=== PATIENT | female | born 1980 | race African-American/Black ===

== ENCOUNTER 2016-12-15 10:41 | Inpatient (IN) | payer OTHER ==
[2016-12-15 11:11] VITALS: BMI 24.2
--- NOTE | 2016-12-15 13:30 | HP ---
CIWA Score - CIWA Score Nausea/Vomitin-No Nausea/No Vomiting Muscle Tremors: 4-Moderate,w/Arms Extend Anxiety: 3 Agitation: 2 Paroxysmal Sweats: 3 Orientation: 2-Disoriented Date<2 days Tacttile Disturbances: 3-Moderate Itch/Numb/Burn Auditory Disturbances: 0-None Visual Disturbances: 0-None Headache: 0-None Present CIWA-Ar Total Score: 17 Admission ROS S - HPI Chief Complaint: "I'm here for Alcohol." Pt. is here to Detox from Alcohol. Allergies/Adverse Reactions: Allergies Allergy/AdvReac Type Severity Reaction Status Date / Time No Known Allergies Allergy Verified 12/15/16 12:23 History of Present Illness: Pt. is a 36 YO female here to Detox from Alcohol. Pt. has had 1 previous Detox and Rehab admission at [facility] in 2003. Exam Limitations: No Limitations - Ebola screening Have you traveled outside of the country in the last 21 days: No Have you had contact with anyone from an Ebola affected area: No Have you been sick,other than usual withdrawal symptoms: No Do you have a fever: No - Review of Systems Constitutional: Chills, Diaphoresis, Fever, Loss of Appetite, Malaise, Night Sweats, Changes in sleep, Unintentional Wgt. Loss (Lost approx. 18 lbs. over last 3 months.) EENT: reports: No Symptoms Reported Respiratory: reports: Cough Cardiac: reports: Other (Blackout: Last episode: 12/13/16; was evluated at ER.) GI: reports: Diarrhea, Poor Appetite : reports: No Symptoms Reported Musculoskeletal: reports: No Symptoms Reported Integumentary: reports: No Symptoms Reported Neuro: reports: Tremors Endocrine: reports: No Symptoms Reported Hematology: reports: Anemia (No treatment.) Psychiatric: reports: Judgement Intact, Mood/Affect Appropiate, Orientated x3, Anxious, Depressed Other Systems: Reviewed and Negative Patient History - Patient Medical History Hx Anemia: Yes (No treatment.) Hx Asthma: No Hx Chronic Obstructive Pulmonary Disease (COPD): No Hx Cancer: No Hx Cardiac Disorders: Yes (open heart sx at age 11) Hx Congestive Heart Failure: No Hx Hypertension: No Hx Hypercholesterolemia: No Hx Pacemaker: No HX Cerebrovascular Accident: No Hx Seizures: No Hx Dementia: No Hx Diabetes: No Hx Gastrointestinal Disorders: No Hx Liver Disease: No Hx Genitourinary Disorders: No Hx Sexually Transmitted Disorders: No Hx Renal Disease (ESRD): No Hx Thyroid Disease: No Hx Human Immunodeficiency Virus (HIV): Yes (No meds.) Hx Hepatitis C: No (Never Tested.) Hx Depression: Yes (No previous treatment.) Hx Suicide Attempt: No (PATIENT DENIES CURRENT SI / HI.) Hx Bipolar Disorder: No Hx Schizophrenia: No Other Medical History: DENIES. - Patient Surgical History Past Surgical History: Yes Hx Neurologic Surgery: No Hx Cataract Extraction: No Hx Cardiac Surgery: Yes (open heart sx at age 11) Hx Lung Surgery: No Hx Breast Surgery: No Hx Breast Biopsy: No Hx Abdominal Surgery: No Hx Appendectomy: No Hx Cholecystectomy: No Hx Genitourinary Surgery: No Hx Section: No Hx Orthopedic Surgery: No Anesthesia Reaction: No - PPD History Previous Implant?: Yes Documented Results: Negative w/o proof Implanted On Prior [facility] Admission?: No PPD to be Administered?: Yes - Reproductive History Patient is a Female of Child Bearing Age (11 -55 yrs old): Yes Last Menstrual Period: 12/12/16 Patient : No - Smoking Cessation Smoking history: Current every day smoker Have you smoked in the past 12 months: Yes Aproximately how many cigarettes per day: 10 Cigars Per Day: 0 Hx Chewing Tobacco Use: No Initiated information on smoking cessation: Yes 'Breaking Loose' booklet given: 12/15/16 (GIVEN ON UNIT.) - Substance & Tx. History Hx Alcohol Use: Yes Hx Substance Use: Yes Substance Use Type: Alcohol Hx Substance Use Treatment: Yes (1 Previous Detox and Rehab admission at [facility] in 2003.) - Substances Abused Alcohol-vodka/beer Route: Oral Frequency: Daily Amount used: 4-5 pts./2-6 pks. Age of first use: 14 Date of Last Use: 12/15/16 Family Disease History - Family Disease History Family History: Denies Admission Physical Exam [facility] - Vital Signs Vital Signs: Vital Signs - 24 hr 12/15/16 11:08 Temperature 97.3 F L Pulse Rate 85 Respiratory 16 Rate Blood Pressure 114/71 - Physical General Appearance: Yes: No Apparent Distress, Nourished, Appropriately Dressed , Tremorous, Anxious HEENTM: Yes: Hearing grossly Normal, Normocephalic, Normal Voice, ADRIAN, Pharynx Normal Respiratory: Yes: Chest Non-Tender, Lungs Clear, No Respiratory Distress, No Accessory Muscle Use Neck: Yes: No masses,lesions,Nodules, Supple, Trachea in good position Breast: Yes: Breast Exam Deferred Cardiology: Yes: Regular Rhythm, Regular Rate, S1, S2 Abdominal: Yes: Normal Bowel Sounds, Non Tender, Flat, Soft Genitourinary: Yes: Within Normal Limits Back: Yes: Normal Inspection Musculoskeletal: Yes: full range of Motion, Gait Steady Extremities: Yes: Normal Range of Motion, Non-Tender, Tremors Neurological: Yes: Fully Oriented, Alert, Normal Mood/Affect, Normal Response Integumentary: Yes: Normal Color, Dry, Warm Lymphatic: Yes: Within Normal Limits - Diagnostic (1) Alcohol dependence with uncomplicated withdrawal Current Visit: Yes Status: Acute (2) Nicotine dependence Current Visit: Yes Status: Chronic Qualifiers: Nicotine product type: cigarettes Substance use status: uncomplicated Qualified Code(s): F17.210 - Nicotine dependence, cigarettes, uncomplicated (3) History of open heart surgery Current Visit: Yes Status: Chronic (4) HIV (human immunodeficiency virus infection) Current Visit: Yes Status: Chronic Cleared for Admission [facility] - Detox or Rehab [facility] Level of Care: Medically Managed Detox Regimen/Protocol: Librium [facility] Breath Alcohol Content Breath Alcohol Content: 0.287 Urine Pregancy Test - Result Urine Test Results: Negative- NO Line Present Urine Drug Screen - Results Drug Screen Negative: No Urine Drug Screen Results: NÉSTOR-Cocaine
[2016-12-15] MEDS ORDERED: chlordiazePOXIDE HCL 25 MG CAPSULE PO PRN (13:56)
[2016-12-15] MEDS ORDERED: MAGNESIUM CITRATE 300 ML BOTTLE PO PRN (13:56)
[2016-12-15] MEDS ORDERED: MENTHOL/PHENOL 1 EACH UD MM PRN (13:56)
[2016-12-15] MEDS ORDERED: hydrOXYzine PAMOATE 50 MG CAPSULE (FP) PO PRN (13:56)
[2016-12-15] MEDS ORDERED: P-EPHED 60MG/TRIPROLIDI 2.5MG TABLET PO PRN (13:56)
[2016-12-15] MEDS ORDERED: LOPERAMIDE HCL 2 MG CAPSULE PO PRN (13:56)
[2016-12-15] MEDS ORDERED: MAGNESIUM HYDROX 2400MG/30ML ORAL SUSPENSION 30 ML CUP PO PRN (13:56)
[2016-12-15] MEDS ORDERED: IBUPROFEN 400 MG TABLET (FP) PO PRN (13:56)
[2016-12-15] MEDS ORDERED: guaiFENesin/D-METHORPHAN HB 10 ML UNIT-DOSE CUPS PO PRN (13:56)
[2016-12-15] MEDS ORDERED: ACETAMINOPHEN 325 MG TABLET (FP) PO PRN (13:56)
[2016-12-15] MEDS ORDERED: MAG HYDROX/AL HYDROX/SIMETH 30 ML UNIT-DOSE CUP PO PRN (13:56)
[2016-12-15] MEDS ORDERED: diphenhydrAMINE HCL 50 MG CAPSULE PO PRN (13:56)
[2016-12-15] MEDS ORDERED: chlordiazePOXIDE HCL 25 MG CAPSULE PO ONE (14:55)
[2016-12-15 16:08] LABS: MCH 32.1 pg (25.7-33.7); MCHC 33.9 g/dl (32.0-36.0); MEAN CELL VOLUME 94.6 fl (80-96); PLATELET COUNT 339 K/MM3 (134-434); RDW 16.1 % (11.6-15.6)
[2016-12-15 16:34] LABS: ALBUMIN 3.6 g/dl (3.4-5.0); ANION GAP 10 (8-16); CALCIUM 8.8 mg/dL (8.5-10.1); CO2 28 mmol/L (21-32); GLUCOSE,RANDOM 107 mg/dL (74-106)
[2016-12-15 16:39] LABS: ALK PHOS 68 U/L (45-117); BILIRUBIN,TOTAL 0.5 mg/dL (0.2-1.0); CREATININE 0.5 mg/dL (0.55-1.02); SGOT/AST 25 U/L (15-37); SGPT/ALT 19 U/L (12-78); TOT PROT 7.8 g/dl (6.4-8.2)
[2016-12-15] MEDS: chlordiazePOXIDE HCL 25 MG CAPSULE PO SCH ×2 (18:09→22:15)
[2016-12-15 19:11] LABS: URINE APPEARANCE CLEAR; URINE BILIRUBIN NEGATIVE (NEGATIVE); URINE BLOOD NEGATIVE (NEGATIVE); URINE COLOR COLORLESS; URINE GLUCOSE (UA) NEGATIVE (NEGATIVE); URINE KETONE NEGATIVE (NEGATIVE); URINE LEUK ESTERASE NEGATIVE (NEGATIVE); URINE NITRITE NEGATIVE (NEGATIVE); URINE PROTEIN NEGATIVE (NEGATIVE); URINE UROBILINOGEN NEGATIVE mg/dL (0.2-1.0)
[2016-12-15] MEDS: THIAMINE HCL 100 MG TABLET (FP) PO SCH (22:15)
[2016-12-16] MEDS: chlordiazePOXIDE HCL 25 MG CAPSULE PO SCH ×4 (05:23→22:47)
[2016-12-16] MEDS: PRENATAL VITAMINS W/ FOLIC ACID TABLET (FP) PO SCH (10:24)
--- NOTE | 2016-12-16 13:24 | PN ---
S CIWA - CIWA Score Nausea/Vomitin-No Nausea/No Vomiting Muscle Tremors: 4-Moderate,w/Arms Extend Anxiety: 4-Mod. Anxious/Guarded Agitation: 3 Paroxysmal Sweats: 3 Orientation: 0-Oriented Tacttile Disturbances: 0-None Auditory Disturbances: 0-None Visual Disturbances: 0-None Headache: 0-None Present CIWA-Ar Total Score: 14 B[facility] Progress Note (SOAP) Subjective: Sweating,interrupted sleep,restless,tremors,anxiety. Objective: 12/16/16 13:23 Vital Signs - 8 hr 12/16/16 12/16/16 06:00 10:00 Temperature 97.7 F 97.7 F Pulse Rate 59 L 74 Respiratory 18 18 Rate Blood Pressure 107/78 128/88 Laboratory Tests 12/15/16 12/15/16 12/15/16 13:00 13:00 13:00 WBC 4.0 RBC 3.45 L Hgb 11.1 Hct 32.6 MCV 94.6 MCH 32.1 MCHC 33.9 RDW 16.1 H Plt Count 339 MPV 8.0 Sickle Cell Screen Negative Sodium 143 Potassium 3.8 Chloride 105 Carbon Dioxide 28 Anion Gap 10 BUN 9 Creatinine 0.5 L Creat Clearance w eGFR > 60 Random Glucose 107 H Calcium 8.8 Total Bilirubin 0.5 AST 25 ALT 19 Alkaline Phosphatase 68 Total Protein 7.8 Albumin 3.6 Urine Color Urine Appearance Urine pH Ur Specific [place] Urine Protein Urine Glucose (UA) Urine Ketones Urine Blood Urine Nitrite Urine Bilirubin Urine Urobilinogen Ur Leukocyte Esterase RPR Titer 12/15/16 12/15/16 13:00 18:53 WBC RBC Hgb Hct MCV MCH MCHC RDW Plt Count MPV Sickle Cell Screen Sodium Potassium Chloride Carbon Dioxide Anion Gap BUN Creatinine Creat Clearance w eGFR Random Glucose Calcium Total Bilirubin AST ALT Alkaline Phosphatase Total Protein Albumin Urine Color Colorless Urine Appearance Clear Urine pH 6.0 Ur Specific [place] <= 1.005 Urine Protein Negative Urine Glucose (UA) Negative Urine Ketones Negative Urine Blood Negative Urine Nitrite Negative Urine Bilirubin Negative Urine Urobilinogen Negative Ur Leukocyte Esterase Negative RPR Titer Nonreactive labs noted Assessment: 12/16/16 13:24 Withdrawal sx. Plan: Continue detox
--- NOTE | 2016-12-16 17:34 | CONSULT ---
[facility] Psychiatric Consult - Data Date of interview: 12/16/16 Admission source: [facility] Identifying data: Patient is approached at bedside for psychiatric evaluation.Refused.Hostile,derogatory and verbally abusive towards this machine sign writer.Examination deferred.Nursing staff made aware.
[2016-12-16] MEDS: THIAMINE HCL 100 MG TABLET (FP) PO SCH (22:47)
[2016-12-17] MEDS: chlordiazePOXIDE HCL 25 MG CAPSULE PO SCH ×2 (06:06→12:43)
--- NOTE | 2016-12-17 11:10 | PN ---
[facility] CIWA - CIWA Score Nausea/Vomitin-No Nausea/No Vomiting Muscle Tremors: 3 Anxiety: 4-Mod. Anxious/Guarded Agitation: 3 Paroxysmal Sweats: 3 Orientation: 0-Oriented Tacttile Disturbances: 0-None Auditory Disturbances: 0-None Visual Disturbances: 0-None Headache: 0-None Present CIWA-Ar Total Score: 13 S Progress Note (SOAP) Subjective: Anxiety,tremors,sweating,interrupted sleep,restless Objective: 12/17/16 11:09 Vital Signs - 8 hr 12/17/16 12/17/16 12/17/16 03:30 06:00 10:00 Temperature 97.3 F L 96.4 F L Pulse Rate 52 L 65 Respiratory 18 16 16 Rate Blood Pressure 108/58 113/83 Laboratory Last Values WBC 4.0 K/mm3 (4.0-10.0) 12/15/16 13:00 RBC 3.45 M/mm3 (3.60-5.2) L 12/15/16 13:00 Hgb 11.1 GM/dL (10.7-15.3) 12/15/16 13:00 Hct 32.6 % (32.4-45.2) 12/15/16 13:00 MCV 94.6 fl (80-96) 12/15/16 13:00 MCH 32.1 pg (25.7-33.7) 12/15/16 13:00 MCHC 33.9 g/dl (32.0-36.0) 12/15/16 13:00 RDW 16.1 % (11.6-15.6) H 12/15/16 13:00 Plt Count 339 K/MM3 (134-434) 12/15/16 13:00 MPV 8.0 fl (7.5-11.1) 12/15/16 13:00 Sickle Cell Screen Negative (NEGATIVE) 12/15/16 13:00 Sodium 143 mmol/L (136-145) 12/15/16 13:00 Potassium 3.8 mmol/L (3.5-5.1) 12/15/16 13:00 Chloride 105 mmol/L (98-107) 12/15/16 13:00 Carbon Dioxide 28 mmol/L (21-32) 12/15/16 13:00 Anion Gap 10 (8-16) 12/15/16 13:00 BUN 9 mg/dL (7-18) 12/15/16 13:00 Creatinine 0.5 mg/dL (0.55-1.02) L 12/15/16 13:00 Creat Clearance w eGFR > 60 (>60) 12/15/16 13:00 Random Glucose 107 mg/dL (74-106) H 12/15/16 13:00 Calcium 8.8 mg/dL (8.5-10.1) 12/15/16 13:00 Total Bilirubin 0.5 mg/dL (0.2-1.0) 12/15/16 13:00 AST 25 U/L (15-37) 12/15/16 13:00 ALT 19 U/L (12-78) 12/15/16 13:00 Alkaline Phosphatase 68 U/L (45-117) 12/15/16 13:00 Total Protein 7.8 g/dl (6.4-8.2) 12/15/16 13:00 Albumin 3.6 g/dl (3.4-5.0) 12/15/16 13:00 Urine Color Colorless 12/15/16 18:53 Urine Appearance Clear 12/15/16 18:53 Urine pH 6.0 (5.0-8.0) 12/15/16 18:53 Ur Specific [place] <= 1.005 (1.005-1.025) 12/15/16 18:53 Urine Protein Negative (NEGATIVE) 12/15/16 18:53 Urine Glucose (UA) Negative (NEGATIVE) 12/15/16 18:53 Urine Ketones Negative (NEGATIVE) 12/15/16 18:53 Urine Blood Negative (NEGATIVE) 12/15/16 18:53 Urine Nitrite Negative (NEGATIVE) 12/15/16 18:53 Urine Bilirubin Negative (NEGATIVE) 12/15/16 18:53 Urine Urobilinogen Negative mg/dL (0.2-1.0) 12/15/16 18:53 Ur Leukocyte Esterase Negative (NEGATIVE) 12/15/16 18:53 RPR Titer Nonreactive (NONREACTIVE) 12/15/16 13:00 Hepatitis C Antibody <0.1 s/co ratio (0.0-0.9) 12/15/16 13:00 labs noted Assessment: 12/17/16 11:10 Withdrawal sx. Plan: Continue detox
[2016-12-17] MEDS: PRENATAL VITAMINS W/ FOLIC ACID TABLET (FP) PO SCH (12:44)
--- NOTE | 2016-12-17 14:03 | EKG ---
Test Reason : Blood Pressure : / mmHG Vent. Rate : 073 BPM Atrial Rate : 073 BPM P-R Int : 160 ms QRS Dur : 100 ms QT Int : 448 ms P-R-T Axes : 083 020 053 degrees QTc Int : 493 ms NORMAL SINUS RHYTHM INCOMPLETE RIGHT BUNDLE BRANCH BLOCK T WAVE ABNORMALITY, CONSIDER ANTERIOR ISCHEMIA PROLONGED QT ABNORMAL ECG NO PREVIOUS ECGS AVAILABLE CLINICAL CORRELATION IS RECOMMENDED Confirmed by TRINI ALVARADO, LENNOX ([id number]) on 12/17/2016 2:03:14 PM Referred By: Jimmy Pate Confirmed By:LENNOX FELIZ MD
[2016-12-17] MEDS: chlordiazePOXIDE 5 MG CAPSULE PO SCH ×2 (17:51→22:42)
[2016-12-17] MEDS: THIAMINE HCL 100 MG TABLET (FP) PO SCH (22:43)
[2016-12-18] MEDS: chlordiazePOXIDE 5 MG CAPSULE PO SCH ×2 (07:46→10:39)
[2016-12-18 10:22] VITALS: BP 106/62; PULSE 63; TEMP 97.7
[2016-12-18] MEDS: PRENATAL VITAMINS W/ FOLIC ACID TABLET (FP) PO SCH (10:39)
--- NOTE | 2016-12-18 11:15 | PN ---
[facility] Progress Note (SOAP) Subjective: i am feeling fine little sweats Objective: 12/18/16 08:30 Vital Signs - 24 hr 12/18/16 10:22 Temperature 97.7 F Pulse Rate 63 Respiratory 20 Rate Blood Pressure 106/62 awake/alert ambulating no acute distress Assessment: 12/18/16 08:31 mild withdrawal sx Plan: continue detox increase fluids d/c in am
[2016-12-18] MEDS ORDERED: chlordiazePOXIDE HCL 10 MG CAPSULE PO SCH (17:00)
--- NOTE | 2016-12-19 08:35 | PN ---
S Progress Note Note: pt did not want to stay and signed out AMA. pt did not want to say why she is leaving.
--- NOTE | 2016-12-19 08:36 | DS ---
[facility] Detox Discharge Summary Admission Date: 12/15/16 Discharge Date: 12/18/16 - History Present History: Alcohol Dependence - Physical Exam Results Vital Signs: Vital Signs Temperature 97.7 F 12/18/16 10:22 Pulse Rate 63 12/18/16 10:22 Respiratory Rate 20 12/18/16 10:22 Blood Pressure 106/62 12/18/16 10:22 O2 Sat by Pulse Oximetry (%) - Treatment Hospital Course: Detoxed Safely, Discharged Condition Good - Medication Discharge Medications: Ambulatory Orders NK [No Known Home Medication] 12/15/16 - Diagnosis (1) Alcohol dependence with uncomplicated withdrawal Status: Chronic (2) HIV (human immunodeficiency virus infection) Status: Chronic (3) History of open heart surgery Status: Chronic (4) Nicotine dependence Status: Chronic Qualifiers: Nicotine product type: cigarettes Substance use status: uncomplicated Qualified Code(s): F17.210 - Nicotine dependence, cigarettes, uncomplicated - AMA Did Patient Leave Against Medical Advice: Yes (AMA 12/18/16)
== END 2016-12-18 12:15 | disposition left against medical advice (07) | DRG 770 ==
LOC: YASAS 10:41 → Y6N 14:02
PROVIDERS: ADMIT Internal Medicine; ATTEND Internal Medicine
PROC: HZ2ZZZZ Detoxification Services for Substance Abuse Treatment (ICD-10-PCS; principal; 2016-12-15)
DX: F10.230 Alcohol dependence with withdrawal, uncomplicated (principal); F17.210 Nicotine dependence, cigarettes, uncomplicated; Z21 Asymptomatic human immunodeficiency virus [HIV] infection status; D64.9 Anemia, unspecified; Z98.890 Other specified postprocedural states
CPT/HCPCS: 36415; 80053; 81003; 85027; 85660; 86593; 86803; 93005; 93010

== ENCOUNTER 2018-05-04 08:06 | Inpatient (IN) | payer OTHER ==
[2018-05-04 09:48] VITALS: BMI 21.4
--- NOTE | 2018-05-04 10:28 | HP ---
CIWA Score Nausea/Vomitin Muscle Tremors: 4-Moderate,w/Arms Extend Anxiety: 4-Mod. Anxious/Guarded Agitation: 1-Slight > Activity Paroxysmal Sweats: No Perspiration Orientation: 0-Oriented Tacttile Disturbances: 0-None Auditory Disturbances: 1-Very Mild Visual Disturbances: 0-None Headache: 2-Mild CIWA-Ar Total Score: 15 - Admission Criteria [facility] Guidelines: Admission for Medically Managed Detox: Requires at least one of the followin. CIWA greater than 12 2. Seizures within the past 24 hours 3. Delirium tremens within the past 24 hours 4. Hallucinations within the past 24 hours 5. Acute intervention needed for co occurring medical disorder 6. Acute intervention needed for co occurring psychiatric disorder 7. Severe withdrawal that cannot be handled at a lower level of care (continued vomiting, continued diarrhea, abnormal vital signs) requiring intravenous medication and/or fluids 8. Patient presents the following: CIWA greater than 12 Admission Criteria Met: Admission criteria met Admission ROS S - HPI Chief Complaint: I need to stop, if I don't stop I'll , I feel like that now, I drink too much Allergies/Adverse Reactions: Allergies Allergy/AdvReac Type Severity Reaction Status Date / Time No Known Allergies Allergy Verified 05/04/18 09:51 History of Present Illness: 37 yo woman here for detox, states last time in detox was January [address] [facility] but she did not f/u with meetings and relapsed. Denies seizures but does have black out. Patient states she drinks first thing in the morning or she shakes and gets 'sick'. Was in ED last night (thinks [facility] and told to come for detox/treatment for intoxication. Exam Limitations: Clinical Condition - Ebola screening Have you traveled outside of the country in the last 21 days: No (N) Have you had contact with anyone from an Ebola affected area: No Have you been sick,other than usual withdrawal symptoms: No Do you have a fever: No - Review of Systems Constitutional: Chills, Loss of Appetite, Malaise, Changes in sleep, Weakness, Unintentional Wgt. Loss EENT: reports: Blurred Vision, Nose Congestion Respiratory: reports: No Symptoms reported Cardiac: reports: No Symptoms Reported GI: reports: Diarrhea, Poor Appetite, Indigestion, Abdominal cramping : reports: Frequency Musculoskeletal: reports: No Symptoms Reported Integumentary: reports: Dryness Neuro: reports: Headache, Tremors Endocrine: reports: No Symptoms Reported Hematology: reports: No Symptoms Reported Psychiatric: reports: Judgement Intact, Mood/Affect Appropiate, Orientated x3, Anxious Other Systems: Reviewed and Negative Patient History - Patient Medical History Hx Anemia: No Hx Asthma: No Hx Chronic Obstructive Pulmonary Disease (COPD): No Hx Cancer: No Hx Cardiac Disorders: No (hx open heart sx at age 11) Hx Congestive Heart Failure: No Hx Hypertension: No Hx Hypercholesterolemia: No Hx Pacemaker: No HX Cerebrovascular Accident: No Hx Seizures: No Hx Dementia: No Hx Diabetes: No Hx Gastrointestinal Disorders: No Hx Liver Disease: No Hx Genitourinary Disorders: No Hx Sexually Transmitted Disorders: No Hx Renal Disease (ESRD): No Hx Thyroid Disease: No Hx Human Immunodeficiency Virus (HIV): Yes (No meds) Hx Hepatitis C: No (Never Tested.) Hx Depression: Yes (No previous treatment, never hospitalized) Hx Suicide Attempt: No (PATIENT DENIES CURRENT SI / HI.) Hx Bipolar Disorder: No Hx Schizophrenia: No - Patient Surgical History Past Surgical History: Yes Hx Neurologic Surgery: No Hx Cataract Extraction: No Hx Cardiac Surgery: Yes (open heart sx at age 11 (closed a hole)) Hx Lung Surgery: No Hx Breast Surgery: No Hx Breast Biopsy: No Hx Abdominal Surgery: No Hx Appendectomy: No Hx Cholecystectomy: No Hx Genitourinary Surgery: No Hx Section: No Hx Orthopedic Surgery: No Anesthesia Reaction: No - PPD History Previous Implant?: Yes Documented Results: Negative w/o proof Implanted On Prior R Admission?: Yes Date: 12/17/16 PPD to be Administered?: Yes - Reproductive History Patient is a Female of Child Bearing Age (11 -55 yrs old): Yes Last Menstrual Period: 05/04/18 Patient : No - Smoking Cessation Smoking history: Current every day smoker Have you smoked in the past 12 months: Yes Aproximately how many cigarettes per day: 4 Cigars Per Day: 0 Hx Chewing Tobacco Use: No Initiated information on smoking cessation: Yes 'Breaking Loose' booklet given: 05/04/18 (give on floor) - Substance & Tx. History Hx Alcohol Use: Yes Hx Substance Use: No Substance Use Type: Alcohol, Cocaine Hx Substance Use Treatment: Yes (detox, rehab) - Substances Abused Alcohol Route: Oral Frequency: Daily Amount used: 2 pints - 2.5 liters of vodka, 3-6 12oz cans of beer Age of first use: 14 Date of Last Use: 05/04/18 Crack Route: Smoking Frequency: 1-3 times last 30 days Amount used: $10-$20 Age of first use: 18 Date of Last Use: 05/04/18 Family Disease History - Family Disease History Family Disease History: [place]: Mother (, hx etoh/drugs), Other: Father ( /hx etoh/drugs, cirrhosis), Mother, Brother (five - little contact), Sister (one - little contact) Admission Physical Exam [facility] - Vital Signs Vital Signs: Vital Signs - 24 hr 05/04/18 09:45 Temperature 98.6 F Pulse Rate 80 Respiratory 16 Rate Blood Pressure 113/69 - Physical General Appearance: Yes: Nourished, Appropriately Dressed, Moderate Distress, Tremorous, Irritable, Anxious HEENTM: Yes: EOMI, Hearing grossly Normal, Normocephalic, Normal Voice, Pharynx Normal, Other (tongue coated) Respiratory: Yes: Normal Breath Sounds, No Respiratory Distress Neck: Yes: No masses,lesions,Nodules Breast: Yes: Breast Exam Deferred Cardiology: Yes: Regular Rhythm, Regular Rate, Surgical Scar Abdominal: Yes: Flat, Soft Genitourinary: Yes: Frequency Back: Yes: Normal Inspection Musculoskeletal: Yes: full range of Motion, Gait Steady Extremities: Yes: Normal Inspection, Normal Range of Motion, Non-Tender Neurological: Yes: Fully Oriented, Alert, Motor Strength 5/5, Normal Mood/Affect , Normal Response Integumentary: Yes: Normal Color, Dry, Warm Lymphatic: Yes: Within Normal Limits - Diagnostic (1) Alcohol dependence with uncomplicated withdrawal Current Visit: Yes Status: Chronic (2) HIV (human immunodeficiency virus infection) Current Visit: Yes Status: Chronic (3) History of open heart surgery Current Visit: Yes Status: Chronic (4) Nicotine dependence Current Visit: Yes Status: Chronic Qualifiers: Nicotine product type: cigarettes Substance use status: uncomplicated Qualified Code(s): F17.210 - Nicotine dependence, cigarettes, uncomplicated (5) Prolonged Q-T interval on ECG Current Visit: Yes Status: Chronic Cleared for Admission [facility] - Detox or Rehab [facility] Level of Care: Medically Managed Detox Regimen/Protocol: Librium [facility] Breath Alcohol Content Breath Alcohol Content: 0.154 Urine Pregancy Test - Result Urine Test Results: Negative- NO Line Present Urine Drug Screen - Results Drug Screen Negative: No Urine Drug Screen Results: NÉSTOR-Cocaine, MDMA-Ecstasy
[2018-05-04] MEDS ORDERED: IBUPROFEN 400 MG TABLET (FP) PO PRN (10:45)
[2018-05-04] MEDS ORDERED: guaiFENesin/D-METHORPHAN HB 10 ML UNIT-DOSE CUPS PO PRN (10:45)
[2018-05-04] MEDS ORDERED: MAG HYDROX/AL HYDROX/SIMETH 30 ML UNIT-DOSE CUP PO PRN (10:45)
[2018-05-04] MEDS ORDERED: MAGNESIUM CITRATE 300 ML BOTTLE PO PRN (10:45)
[2018-05-04] MEDS ORDERED: LOPERAMIDE HCL 2 MG CAPSULE PO PRN (10:45)
[2018-05-04] MEDS ORDERED: chlordiazePOXIDE HCL 25 MG CAPSULE PO PRN (10:45)
[2018-05-04] MEDS ORDERED: P-EPHED 60MG/TRIPROLIDI 2.5MG TABLET PO PRN (10:45)
[2018-05-04] MEDS ORDERED: MAGNESIUM HYDROX 2400MG/30ML ORAL SUSPENSION 30 ML CUP PO PRN (10:45)
[2018-05-04] MEDS ORDERED: MENTHOL/PHENOL 1 EACH UD MM PRN (10:45)
[2018-05-04] MEDS ORDERED: ACETAMINOPHEN 325 MG TABLET (FP) PO PRN (10:45)
[2018-05-04] MEDS: chlordiazePOXIDE HCL 25 MG CAPSULE PO SCH ×2 (17:01→22:56)
[2018-05-04] MEDS: THIAMINE HCL 100 MG TABLET (FP) PO SCH (22:56)
[2018-05-05] MEDS: chlordiazePOXIDE HCL 25 MG CAPSULE PO SCH ×4 (05:33→22:25)
[2018-05-05] MEDS: PRENATAL VITAMINS W/ FOLIC ACID TABLET (FP) PO SCH (10:10)
[2018-05-05 10:38] LABS: ALBUMIN 2.3 g/dl (3.4-5.0); ALK PHOS 154 U/L (45-117); ANION GAP 7 MMOL/L (8-16); BILIRUBIN,TOTAL 0.7 mg/dL (0.2-1); BLOOD UREA NITROGEN 6 mg/dL (7-18); CALCIUM 8.4 mg/dL (8.5-10.1); CHLORIDE 103 mmol/L (98-107); CO2 27 mmol/L (21-32); CREATININE 0.6 mg/dL (0.55-1.3); GLUCOSE,RANDOM 87 mg/dL (74-106); POTASSIUM 3.6 mmol/L (3.5-5.1); SGOT/AST 111 U/L (15-37); SGPT/ALT 56 U/L (13-61); SODIUM 138 mmol/L (136-145); TOT PROT 6.6 g/dl (6.4-8.2)
[2018-05-05 10:55] LABS: HEMATOCRIT 32.3 % (32.4-45.2); HEMOGLOBIN 11.6 GM/dL (10.7-15.3); MCH 34.5 pg (25.7-33.7); MCHC 35.8 g/dl (32.0-36.0); MEAN CELL VOLUME 96.3 fl (80-96); MEAN PLT VOLUME 8.3 fl (7.5-11.1); PLATELET COUNT 328 K/MM3 (134-434); RBC 3.35 M/mm3 (3.60-5.2); RDW 15.8 % (11.6-15.6); WHITE BLOOD COUNT 2.6 K/mm3 (4.0-10.0)
--- NOTE | 2018-05-05 11:28 | EKG ---
Test Reason : Blood Pressure : / mmHG Vent. Rate : 077 BPM Atrial Rate : 077 BPM P-R Int : 164 ms QRS Dur : 094 ms QT Int : 406 ms P-R-T Axes : 067 015 022 degrees QTc Int : 459 ms NORMAL SINUS RHYTHM INCOMPLETE RIGHT BUNDLE BRANCH BLOCK T WAVE ABNORMALITY, CONSIDER ANTERIOR ISCHEMIA ABNORMAL ECG WHEN COMPARED WITH ECG OF 15-DEC-2016 14:19, NONSPECIFIC T WAVE ABNORMALITY NOW EVIDENT IN INFERIOR LEADS Confirmed by CYNDI VYAS MD ([id number]) on 05/05/2018 11:28:05 AM Referred By: Confirmed By:CYNDI VYAS MD
--- NOTE | 2018-05-05 12:18 | PN ---
[facility] CIWA - CIWA Score Nausea/Vomitin-Mild Nausea/No Vomiting Muscle Tremors: 3 Anxiety: 2 Agitation: 3 Paroxysmal Sweats: 1-Minimal Palms Moist Orientation: 1-Uncertain about Date Tacttile Disturbances: 0-None Auditory Disturbances: 0-None Visual Disturbances: 0-None Headache: 2-Mild CIWA-Ar Total Score: 13 S Progress Note (SOAP) Subjective: tremor sweat gi distress anxiousness restlessness Objective: 05/05/18 12:16 Vital Signs Temperature 97.9 F 05/05/18 09:44 Pulse Rate 84 05/05/18 09:44 Respiratory Rate 18 05/05/18 09:44 Blood Pressure 112/85 05/05/18 09:44 O2 Sat by Pulse Oximetry (%) Laboratory Last Values WBC 2.6 K/mm3 (4.0-10.0) L 05/05/18 07:30 RBC 3.35 M/mm3 (3.60-5.2) L 05/05/18 07:30 Hgb 11.6 GM/dL (10.7-15.3) 05/05/18 07:30 Hct 32.3 % (32.4-45.2) L 05/05/18 07:30 MCV 96.3 fl (80-96) H 05/05/18 07:30 MCH 34.5 pg (25.7-33.7) H 05/05/18 07:30 MCHC 35.8 g/dl (32.0-36.0) 05/05/18 07:30 RDW 15.8 % (11.6-15.6) H 05/05/18 07:30 Plt Count 328 K/MM3 (134-434) 05/05/18 07:30 MPV 8.3 fl (7.5-11.1) 05/05/18 07:30 Sodium 138 mmol/L (136-145) 05/05/18 07:30 Potassium 3.6 mmol/L (3.5-5.1) 05/05/18 07:30 Chloride 103 mmol/L (98-107) 05/05/18 07:30 Carbon Dioxide 27 mmol/L (21-32) 05/05/18 07:30 Anion Gap 7 MMOL/L (8-16) L 05/05/18 07:30 BUN 6 mg/dL (7-18) L 05/05/18 07:30 Creatinine 0.6 mg/dL (0.55-1.3) 05/05/18 07:30 Creat Clearance w eGFR > 60 (>60) 05/05/18 07:30 Random Glucose 87 mg/dL (74-106) 05/05/18 07:30 Calcium 8.4 mg/dL (8.5-10.1) L 05/05/18 07:30 Total Bilirubin 0.7 mg/dL (0.2-1) 05/05/18 07:30 AST 111 U/L (15-37) H 05/05/18 07:30 ALT 56 U/L (13-61) 05/05/18 07:30 Alkaline Phosphatase 154 U/L (45-117) H 05/05/18 07:30 Total Protein 6.6 g/dl (6.4-8.2) 05/05/18 07:30 Albumin 2.3 g/dl (3.4-5.0) L 05/05/18 07:30 lab noted Assessment: 05/05/18 12:17 withdrawal sx ast elevation Plan: continue detox repeat ast
[2018-05-05] MEDS: THIAMINE HCL 100 MG TABLET (FP) PO SCH (22:24)
[2018-05-05] MEDS: MELATONIN 5 MG TABLETS PO PRN (22:25)
[2018-05-06] MEDS: chlordiazePOXIDE HCL 25 MG CAPSULE PO SCH ×2 (06:17→10:08)
[2018-05-06] MEDS: PRENATAL VITAMINS W/ FOLIC ACID TABLET (FP) PO SCH (10:08)
[2018-05-06 10:31] LABS: BASO % 0.8 % (0-2.0); EOS % 3.8 % (0-4.5); HEMATOCRIT 32.5 % (32.4-45.2); HEMOGLOBIN 10.5 GM/dL (10.7-15.3); LYMPH % 32.9 % (8-40); MCH 32.1 pg (25.7-33.7); MCHC 32.4 g/dl (32.0-36.0); MEAN CELL VOLUME 99.1 fl (80-96); MEAN PLT VOLUME 8.5 fl (7.5-11.1); MONO % 10.1 % (3.8-10.2); NEUT % 52.4 % (42.8-82.8); PLATELET COUNT 262 K/MM3 (134-434); RBC 3.28 M/mm3 (3.60-5.2); RDW 15.6 % (11.6-15.6); WHITE BLOOD COUNT 2.9 K/mm3 (4.0-10.0)
[2018-05-06 10:47] LABS: SGOT/AST 102 U/L (15-37); SGPT/ALT 53 U/L (13-61)
--- NOTE | 2018-05-06 10:47 | PN ---
[facility] CIWA - CIWA Score Nausea/Vomitin-No Nausea/No Vomiting Muscle Tremors: 3 Anxiety: 2 Agitation: 3 Paroxysmal Sweats: 3 Orientation: 0-Oriented Tacttile Disturbances: 0-None Auditory Disturbances: 0-None Visual Disturbances: 0-None Headache: 0-None Present CIWA-Ar Total Score: 11 S Progress Note (SOAP) Subjective: sweats shakes interrupted sleep body aches Objective: 05/06/18 10:46 Vital Signs Temperature 98.1 F 05/06/18 09:35 Pulse Rate 77 05/06/18 09:35 Respiratory Rate 16 05/06/18 09:35 Blood Pressure 105/69 05/06/18 09:35 O2 Sat by Pulse Oximetry (%) Laboratory Tests 05/05/18 05/05/18 05/05/18 07:30 07:30 07:30 WBC 2.6 L RBC 3.35 L Hgb 11.6 Hct 32.3 L MCV 96.3 H MCH 34.5 H MCHC 35.8 RDW 15.8 H Plt Count 328 MPV 8.3 Absolute Neuts (auto) Neutrophils % Lymphocytes % Monocytes % Eosinophils % Basophils % Nucleated RBC % Sodium 138 Potassium 3.6 Chloride 103 Carbon Dioxide 27 Anion Gap 7 L BUN 6 L Creatinine 0.6 Creat Clearance w eGFR > 60 Random Glucose 87 Calcium 8.4 L Total Bilirubin 0.7 AST 111 H ALT 56 Alkaline Phosphatase 154 H Total Protein 6.6 Albumin 2.3 L RPR Titer Nonreactive 05/06/18 07:30 WBC 2.9 L RBC 3.28 L Hgb 10.5 L Hct 32.5 MCV 99.1 H MCH 32.1 MCHC 32.4 RDW 15.6 Plt Count 262 D MPV 8.5 Absolute Neuts (auto) 1.5 Neutrophils % 52.4 Lymphocytes % 32.9 Monocytes % 10.1 Eosinophils % 3.8 Basophils % 0.8 Nucleated RBC % 0 Sodium Potassium Chloride Carbon Dioxide Anion Gap BUN Creatinine Creat Clearance w eGFR Random Glucose Calcium Total Bilirubin AST ALT Alkaline Phosphatase Total Protein Albumin RPR Titer aaox3 ambulating no acute distress Assessment: 05/06/18 10:47 withdrawal sx Plan: continue detox increase fluids
[2018-05-06] MEDS: chlordiazePOXIDE 5 MG CAPSULE PO SCH ×2 (17:32→21:59)
[2018-05-06] MEDS: THIAMINE HCL 100 MG TABLET (FP) PO SCH (21:52)
[2018-05-06] MEDS: MELATONIN 5 MG TABLETS PO PRN (22:00)
[2018-05-07] MEDS: chlordiazePOXIDE 5 MG CAPSULE PO SCH ×2 (06:23→10:09)
[2018-05-07] MEDS: PRENATAL VITAMINS W/ FOLIC ACID TABLET (FP) PO SCH (10:09)
--- NOTE | 2018-05-07 12:04 | PN ---
[facility] Progress Note Note: PATIENT CONTINUES WITH DETOX REGIMEN UNTIL TOMORROW. STATES " I FEEL BETTER, JUST TIRED". Vital Signs Temperature 98.1 F 05/07/18 09:31 Pulse Rate 82 05/07/18 09:31 Respiratory Rate 18 05/07/18 09:31 Blood Pressure 100/66 05/07/18 09:31 O2 Sat by Pulse Oximetry (%) Laboratory Tests 05/05/18 05/05/18 05/05/18 07:30 07:30 07:30 WBC 2.6 L RBC 3.35 L Hgb 11.6 Hct 32.3 L MCV 96.3 H MCH 34.5 H MCHC 35.8 RDW 15.8 H Plt Count 328 MPV 8.3 Absolute Neuts (auto) Neutrophils % Lymphocytes % Monocytes % Eosinophils % Basophils % Nucleated RBC % Sodium 138 Potassium 3.6 Chloride 103 Carbon Dioxide 27 Anion Gap 7 L BUN 6 L Creatinine 0.6 Creat Clearance w eGFR > 60 Random Glucose 87 Calcium 8.4 L Total Bilirubin 0.7 AST 111 H ALT 56 Alkaline Phosphatase 154 H Total Protein 6.6 Albumin 2.3 L RPR Titer Nonreactive 05/06/18 05/06/18 07:30 07:30 WBC 2.9 L RBC 3.28 L Hgb 10.5 L Hct 32.5 MCV 99.1 H MCH 32.1 MCHC 32.4 RDW 15.6 Plt Count 262 D MPV 8.5 Absolute Neuts (auto) 1.5 Neutrophils % 52.4 Lymphocytes % 32.9 Monocytes % 10.1 Eosinophils % 3.8 Basophils % 0.8 Nucleated RBC % 0 Sodium Potassium Chloride Carbon Dioxide Anion Gap BUN Creatinine Creat Clearance w eGFR Random Glucose Calcium Total Bilirubin AST 102 H ALT 53 Alkaline Phosphatase Total Protein Albumin RPR Titer PE; ALERT AND ORIENTED X 3 SKIN WARM AND DRY EXT FULL ROM, AMB AD NAN IN NO ACUTE DISTRESS A/P WITHDRAWAL SX-IMPROVED CONTINUE DETOX ENCOURAGE FLUIDS PATIENT FOR D/C IN AM AND ENCOURAGED TO FOLLOW UP WITH PCP WITHIN ONE WEEK OF D/ C CONTINUE TO MONITOR
[2018-05-07] MEDS: chlordiazePOXIDE HCL 10 MG CAPSULE PO SCH ×2 (17:09→21:59)
[2018-05-07] MEDS: THIAMINE HCL 100 MG TABLET (FP) PO SCH (21:54)
[2018-05-07] MEDS: MELATONIN 5 MG TABLETS PO PRN (21:54)
[2018-05-07 22:12] VITALS: BP 106/62; PULSE 75; TEMP 98.4
[2018-05-08] MEDS: chlordiazePOXIDE HCL 10 MG CAPSULE PO SCH ×2 (06:25→10:05)
[2018-05-08] MEDS: PRENATAL VITAMINS W/ FOLIC ACID TABLET (FP) PO SCH (10:04)
--- NOTE | 2018-05-08 14:37 | DS ---
[facility] Detox Discharge Summary Admission Date: 05/04/18 Discharge Date: 05/08/18 - History Present History: Alcohol Dependence Additional Comments: PATIENT SCHEDULED FOR DISCHARGE FROM DETOX UNIT TO DAY. PATIENT SCHEDULED TO GO TO [facility] ([facility]) FOR AFTERCARE. PATIENT WAS DISCHARGED FROM DETOX UNIT TO BE TAKEN TO REHAB UNIT IN STABLE MEDICAL CONDITION. Pertinent Past History: H.I.V., History of Open Heart Surgery, History of Prolonged Q-T Interval on ECG , History of Depression, Nicotine Dependence. - Physical Exam Results Vital Signs: Vital Signs Temperature 98.4 F 05/07/18 22:11 Pulse Rate 75 05/07/18 22:11 Respiratory Rate 16 05/08/18 03:30 Blood Pressure 106/62 05/07/18 22:11 O2 Sat by Pulse Oximetry (%) Pertinent Admission Physical Exam Findings: WITHDRAWAL SYMPTOMS. Laboratory Tests 05/05/18 05/05/18 05/05/18 07:30 07:30 07:30 WBC 2.6 L RBC 3.35 L Hgb 11.6 Hct 32.3 L MCV 96.3 H MCH 34.5 H MCHC 35.8 RDW 15.8 H Plt Count 328 MPV 8.3 Absolute Neuts (auto) Neutrophils % Lymphocytes % Monocytes % Eosinophils % Basophils % Nucleated RBC % Sodium 138 Potassium 3.6 Chloride 103 Carbon Dioxide 27 Anion Gap 7 L BUN 6 L Creatinine 0.6 Creat Clearance w eGFR > 60 Random Glucose 87 Calcium 8.4 L Total Bilirubin 0.7 AST 111 H ALT 56 Alkaline Phosphatase 154 H Total Protein 6.6 Albumin 2.3 L RPR Titer Nonreactive 05/06/18 05/06/18 07:30 07:30 WBC 2.9 L RBC 3.28 L Hgb 10.5 L Hct 32.5 MCV 99.1 H MCH 32.1 MCHC 32.4 RDW 15.6 Plt Count 262 D MPV 8.5 Absolute Neuts (auto) 1.5 Neutrophils % 52.4 Lymphocytes % 32.9 Monocytes % 10.1 Eosinophils % 3.8 Basophils % 0.8 Nucleated RBC % 0 Sodium Potassium Chloride Carbon Dioxide Anion Gap BUN Creatinine Creat Clearance w eGFR Random Glucose Calcium Total Bilirubin AST 102 H ALT 53 Alkaline Phosphatase Total Protein Albumin RPR Titer LABS NOTED. - Treatment Hospital Course: Detox Protocol Followed, Detoxed Safely, Responded well, Discharged Condition Good, Rehab Referral Accepted Patient has Accepted a Rehab Referral to: [facility] ([place], [place]). - Medication Discharge Medications: Ambulatory Orders NK [No Known Home Medication] 12/15/16 - Diagnosis (1) Alcohol dependence with uncomplicated withdrawal Status: Acute (2) HIV (human immunodeficiency virus infection) Status: Chronic (3) History of open heart surgery Status: Chronic (4) Nicotine dependence Status: Chronic Qualifiers: Nicotine product type: cigarettes Substance use status: uncomplicated Qualified Code(s): F17.210 - Nicotine dependence, cigarettes, uncomplicated (5) Prolonged Q-T interval on ECG Status: Chronic - AMA Did Patient Leave Against Medical Advice: No
== END 2018-05-08 10:21 | disposition other institution (70) | DRG 775 ==
LOC: YASAS 08:06 → Y6N 11:09
PROC: HZ2ZZZZ Detoxification Services for Substance Abuse Treatment (ICD-10-PCS; principal; 2018-05-04)
DX: F10.230 Alcohol dependence with withdrawal, uncomplicated (principal); F17.210 Nicotine dependence, cigarettes, uncomplicated; Z21 Asymptomatic human immunodeficiency virus [HIV] infection status; I45.81 Long QT syndrome; R74.0 Nonspecific elevation of levels of transaminase and lactic acid dehydrogenase [LDH]; Z87.74 Personal history of (corrected) congenital malformations of heart and circulatory system
CPT/HCPCS: 36415; 80053; 84450; 84460; 85025; 85027; 86593; 93005; 93010

== ENCOUNTER 2018-05-08 10:12 | Inpatient (IN) | payer OTHER ==
[2018-05-08] MEDS ORDERED: P-EPHED 60MG/TRIPROLIDI 2.5MG TABLET PO PRN (14:22)
[2018-05-08] MEDS ORDERED: MENTHOL/PHENOL 1 EACH UD MM PRN (14:22)
[2018-05-08] MEDS ORDERED: LOPERAMIDE HCL 2 MG CAPSULE PO PRN (14:22)
[2018-05-08] MEDS ORDERED: ACETAMINOPHEN 325 MG TABLET (FP) PO PRN (14:22)
[2018-05-08] MEDS ORDERED: MAGNESIUM HYDROX 2400MG/30ML ORAL SUSPENSION 30 ML CUP PO PRN (14:22)
[2018-05-08] MEDS ORDERED: IBUPROFEN 400 MG TABLET (FP) PO PRN (14:22)
[2018-05-08] MEDS ORDERED: MAG HYDROX/AL HYDROX/SIMETH 30 ML UNIT-DOSE CUP PO PRN (14:22)
[2018-05-08] MEDS ORDERED: guaiFENesin/D-METHORPHAN HB 10 ML UNIT-DOSE CUPS PO PRN (14:22)
[2018-05-08] MEDS ORDERED: MAGNESIUM CITRATE 300 ML BOTTLE PO PRN (14:22)
--- NOTE | 2018-05-08 14:27 | HP ---
[facility] Rehab Assess/Revision - Admission History Admitted to Rehab from: [facility] Date of Admission to Rehab: 05/08/2018 - Vital signs Vital Signs: Vital Signs Period Temp Pulse Resp BP Sys/Pizano Pulse Ox Last 24 Hr 97.9 F 84 18 94/66 - Findings Detox History & Physical reviewed: Yes Concur with findings: Yes Comments/Additional Findings: PATIENT'S MEDICAL / MEDICATION HISTORY REVIEWED PRIOR TO DISCHARGE FROM DETOX UNIT. PATIENT WAS DISCHARGED FROM DETOX UNIT TO BE TAKEN TO REHAB UNIT IN STABLE MEDICAL CONDITION. Inpatient Rehab Admission - Initial Determination Are CD services needed?: Yes Free of communicable disease: Yes Not in need of hospitalization: Yes - Rehab Admission Criteria Previous failed treatment: Yes Comorbidities: Yes Patient is meeting Inpatient Rehab admission criteria:: Yes
[2018-05-08] MEDS: MELATONIN 5 MG TABLETS PO PRN (21:06)
[2018-05-08] MEDS: THIAMINE HCL 100 MG TABLET (FP) PO SCH (21:06)
[2018-05-09] MEDS ORDERED: PT OWN MED DRAWER 7, Y5N ONE (08:52)
[2018-05-09] MEDS: PRENATAL VITAMINS W/ FOLIC ACID TABLET (FP) PO SCH (10:03)
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
[2018-05-09] MEDS: THIAMINE HCL 100 MG TABLET (FP) PO SCH (21:16)
[2018-05-09] MEDS: MELATONIN 5 MG TABLETS PO PRN (21:16)
[2018-05-10] MEDS: PRENATAL VITAMINS W/ FOLIC ACID TABLET (FP) PO SCH (09:57)
[2018-05-10] MEDS: MELATONIN 5 MG TABLETS PO PRN (21:12)
[2018-05-10] MEDS: THIAMINE HCL 100 MG TABLET (FP) PO SCH (21:13)
[2018-05-11] MEDS: PRENATAL VITAMINS W/ FOLIC ACID TABLET (FP) PO SCH (09:55)
[2018-05-11] MEDS: THIAMINE HCL 100 MG TABLET (FP) PO SCH (21:13)
[2018-05-11] MEDS: MELATONIN 5 MG TABLETS PO PRN (21:13)
[2018-05-12] MEDS: PRENATAL VITAMINS W/ FOLIC ACID TABLET (FP) PO SCH (10:01)
[2018-05-12] MEDS: THIAMINE HCL 100 MG TABLET (FP) PO SCH (21:07)
[2018-05-12] MEDS: MELATONIN 5 MG TABLETS PO PRN (21:07)
[2018-05-13] MEDS: PRENATAL VITAMINS W/ FOLIC ACID TABLET (FP) PO SCH (10:13)
[2018-05-13] MEDS: THIAMINE HCL 100 MG TABLET (FP) PO SCH (21:02)
[2018-05-13] MEDS: MELATONIN 5 MG TABLETS PO PRN (21:02)
[2018-05-14] MEDS: PRENATAL VITAMINS W/ FOLIC ACID TABLET (FP) PO SCH (10:00)
[2018-05-14] MEDS: THIAMINE HCL 100 MG TABLET (FP) PO SCH (21:05)
[2018-05-14] MEDS: MELATONIN 5 MG TABLETS PO PRN (21:05)
[2018-05-15] MEDS: PRENATAL VITAMINS W/ FOLIC ACID TABLET (FP) PO SCH (10:07)
[2018-05-15] MEDS: THIAMINE HCL 100 MG TABLET (FP) PO SCH (21:08)
[2018-05-15] MEDS: MELATONIN 5 MG TABLETS PO PRN (21:09)
[2018-05-16] MEDS: PRENATAL VITAMINS W/ FOLIC ACID TABLET (FP) PO SCH (10:12)
[2018-05-16] MEDS: MELATONIN 5 MG TABLETS PO PRN (21:25)
[2018-05-16] MEDS: THIAMINE HCL 100 MG TABLET (FP) PO SCH (21:25)
[2018-05-17] MEDS: PRENATAL VITAMINS W/ FOLIC ACID TABLET (FP) PO SCH (10:14)
[2018-05-17] MEDS: THIAMINE HCL 100 MG TABLET (FP) PO SCH (21:43)
[2018-05-17] MEDS: MELATONIN 5 MG TABLETS PO PRN (21:43)
[2018-05-18 07:08] VITALS: BP 100/63; PULSE 62; TEMP 98.2
[2018-05-18] MEDS: PRENATAL VITAMINS W/ FOLIC ACID TABLET (FP) PO SCH (09:39)
== END 2018-05-18 17:30 | disposition home or self-care (01) | DRG 772 ==
LOC: YASAS 10:12 → Y3E 10:14
PROVIDERS: ADMIT Psychiatry & Neurology Psychiatry; ATTEND Psychiatry & Neurology Psychiatry
PROC: HZ42ZZZ Group Counseling for Substance Abuse Treatment, Cognitive-Behavioral (ICD-10-PCS; principal; 2018-05-08)
DX: F10.20 Alcohol dependence, uncomplicated (principal); F14.20 Cocaine dependence, uncomplicated; F17.210 Nicotine dependence, cigarettes, uncomplicated; F19.282 Other psychoactive substance dependence with psychoactive substance-induced sleep disorder; F19.24 Other psychoactive substance dependence with psychoactive substance-induced mood disorder; Z21 Asymptomatic human immunodeficiency virus [HIV] infection status

== ENCOUNTER 2019-06-12 14:55 | Inpatient (IN) | payer BC ==
[2019-06-12 16:29] VITALS: BMI 27.8
--- NOTE | 2019-06-12 17:01 | HP ---
CIWA Score Nausea/Vomitin-No Nausea/No Vomiting Muscle Tremors: None Anxiety: 4-Mod. Anxious/Guarded Agitation: 2 Paroxysmal Sweats: 2 Orientation: 0-Oriented Tacttile Disturbances: 2-Mild Itch/Numbness/Burn Auditory Disturbances: 0-None Visual Disturbances: 0-None Headache: 0-None Present CIWA-Ar Total Score: 10 - Admission Criteria OASAS Guidelines: Admission for Medically Managed Detox: Requires at least one of the followin. CIWA greater than 12 2. Seizures within the past 24 hours 3. Delirium tremens within the past 24 hours 4. Hallucinations within the past 24 hours 5. Acute intervention needed for co occurring medical disorder 6. Acute intervention needed for co occurring psychiatric disorder 7. Severe withdrawal that cannot be handled at a lower level of care (continued vomiting, continued diarrhea, abnormal vital signs) requiring intravenous medication and/or fluids 8. Admitting History and Physical - Past Medical History ...LMP: 05/04/18 - Smoking History Smoking history: Current every day smoker Have you smoked in the past 12 months: Yes Aproximately how many cigarettes per day: 4 - Alcohol/Substance Use Hx Alcohol Use: Yes Admission [facility] Allergies/Adverse Reactions: Allergies Allergy/AdvReac Type Severity Reaction Status Date / Time No Known Allergies Allergy Verified 06/12/19 16:20 History of Present Illness: 38 y.o. female here requesting detox from etoh use , reports 1/2 pint/1 pint/ day , reports tremors if not drinking , latest use today , current JOSE MANUEL 0.020 , denie seizures or blackouts. cocaine : 50 $ /day via smoking tobacco : 2-3 cigs/day pMHX /PSHx ; ASD age 11 lmp Jun 2019 Exam Limitations: Clinical Condition, Intoxication - Review of Systems Constitutional: Loss of Appetite EENT: reports: No Symptoms Reported Respiratory: reports: No Symptoms reported Cardiac: reports: No Symptoms Reported GI: reports: Diarrhea, Poor Appetite : reports: No Symptoms Reported Musculoskeletal: reports: No Symptoms Reported Integumentary: reports: No Symptoms Reported Neuro: reports: No Symptoms reported Endocrine: reports: No Symptoms Reported Hematology: reports: No Symptoms Reported Psychiatric: reports: Orientated x3, Agitated, Anxious Patient History - Patient Medical History Hx Anemia: No Hx Asthma: No Hx Chronic Obstructive Pulmonary Disease (COPD): No Hx Cancer: No Hx Cardiac Disorders: No Hx Congestive Heart Failure: No Hx Hypertension: No Hx Hypercholesterolemia: No Hx Pacemaker: No HX Cerebrovascular Accident: No Hx Seizures: No Hx Dementia: No Hx Diabetes: No Hx Gastrointestinal Disorders: No Hx Liver Disease: No Hx Genitourinary Disorders: No Hx Sexually Transmitted Disorders: Yes Hx Renal Disease (ESRD): No Hx Thyroid Disease: No Hx Human Immunodeficiency Virus (HIV): Yes (No meds since 2011) Hx Hepatitis C: No (Never Tested.) Hx Depression: Yes Hx Suicide Attempt: No Hx Bipolar Disorder: No Hx Schizophrenia: No - Patient Surgical History Past Surgical History: Yes Hx Neurologic Surgery: No Hx Cataract Extraction: No Hx Cardiac Surgery: Yes (open heart sx age 11) Hx Lung Surgery: No Hx Breast Surgery: No Hx Breast Biopsy: No Hx Abdominal Surgery: No Hx Appendectomy: No Hx Cholecystectomy: No Hx Genitourinary Surgery: No Hx Section: No Hx Orthopedic Surgery: No Anesthesia Reaction: No - PPD History Date: 05/06/18 - Smoking Cessation Smoking history: Current every day smoker Have you smoked in the past 12 months: Yes Aproximately how many cigarettes per day: 2 Cigars Per Day: 0 Hx Chewing Tobacco Use: No Initiated information on smoking cessation: No - Substances abused Alcohol Substance route: Oral Frequency: Daily Amount used: 1/2 -1 pint of vodka Age of first use: 14 Date of last use: 06/12/19 Admission Physical Exam BHS - Vital Signs Vital Signs: Vital Signs - 24 hr 06/12/19 16:18 Temperature 98.9 F Pulse Rate 75 Respiratory 17 Rate Blood Pressure 133/81 - Physical General Appearance: Yes: Alcohol on Breath, Intoxicated, Anxious HEENTM: Yes: EOMI, Hearing grossly Normal, Normocephalic, Normal Voice Respiratory: Yes: Chest Non-Tender, Lungs Clear, Normal Breath Sounds, No Respiratory Distress, No Accessory Muscle Use Neck: Yes: No masses,lesions,Nodules, Trachea in good position Cardiology: Yes: Regular Rhythm, Regular Rate, S1, S2 Abdominal: Yes: Non Tender, Soft Musculoskeletal: Yes: Gait Steady Extremities: Yes: Normal Range of Motion, Non-Tender Neurological: Yes: Fully Oriented, Alert, Motor Strength 5/5 Integumentary: Yes: Normal Color, Warm - Diagnostic (1) Alcohol dependence with uncomplicated withdrawal Current Visit: Yes Status: Chronic (2) Cocaine abuse Current Visit: Yes Status: Chronic (3) Nicotine dependence Current Visit: Yes Status: Chronic Qualifiers: Nicotine product type: cigarettes Substance use status: uncomplicated Qualified Code(s): F17.210 - Nicotine dependence, cigarettes, uncomplicated Breathalyzer - Breathalyzer Breathalyzer: 0.020 Urine Drug Screen - Test Device Lot number: [id number] Expiration date: 04/05/21 - Control Is test valid?: Yes - Results Drug screen NEGATIVE: No Urine drug screen results: NÉSTOR-Cocaine, BZO-Benzodiazepines Inpatient Rehab Admission - Rehab Decision to Admit Inpatient rehab admission?: No
[2019-06-12] MEDS ORDERED: MAGNESIUM CITRATE 300 ML BOTTLE PO PRN (17:10)
[2019-06-12] MEDS ORDERED: IBUPROFEN 400 MG TABLET (FP) PO PRN (17:10)
[2019-06-12] MEDS ORDERED: ACETAMINOPHEN 325 MG TABLET (FP) PO PRN ×2 (17:10)
[2019-06-12] MEDS ORDERED: MENTHOL/PHENOL 1 EACH UD MM PRN (17:10)
[2019-06-12] MEDS ORDERED: MAGNESIUM HYDROX 2400MG/30ML ORAL SUSPENSION 30 ML CUP PO PRN (17:10)
[2019-06-12] MEDS ORDERED: MAG HYDROX/AL HYDROX/SIMETH 30 ML UNIT-DOSE CUP PO PRN (17:10)
[2019-06-12] MEDS ORDERED: hydrOXYzine PAMOATE 25 MG CAPSULE (FP) PO PRN (17:10)
[2019-06-12] MEDS ORDERED: BISMUTH SUBSALICYLATE 524 MG/30 ML UD PO PRN (17:10)
[2019-06-12] MEDS ORDERED: chlordiazePOXIDE HCL 10 MG CAPSULE PO PRN (17:11)
[2019-06-12] MEDS: MELATONIN 5 MG TABLETS PO PRN (22:34)
[2019-06-12] MEDS: chlordiazePOXIDE HCL 25 MG CAPSULE PO SCH (22:34)
[2019-06-12] MEDS: THIAMINE HCL 100 MG TABLET (FP) PO SCH (22:34)
[2019-06-13] MEDS: chlordiazePOXIDE HCL 25 MG CAPSULE PO SCH ×3 (05:39→22:23)
[2019-06-13] MEDS: PRENATAL VITAMINS W/ FOLIC ACID TABLET (FP) PO SCH (10:38)
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
[2019-06-13 10:53] LABS: ALBUMIN 2.5 g/dl (3.4-5.0); BILIRUBIN,TOTAL 0.4 mg/dL (0.2-1); CALCIUM 8.3 mg/dL (8.5-10.1); CREATININE 0.5 mg/dL (0.55-1.3); POTASSIUM 3.3 mmol/L (3.5-5.1)
[2019-06-13 10:56] LABS: BLOOD UREA NITROGEN 2.7 mg/dL (7-18)
[2019-06-13 11:29] LABS: HEMATOCRIT 30.7 % (32.4-45.2); HEMOGLOBIN 10.4 GM/dL (10.7-15.3); MCHC 33.9 g/dl (32.0-36.0); MEAN CELL VOLUME 94.4 fl (80-96); MEAN PLT VOLUME 9.1 fl (7.5-11.1); PLATELET COUNT 166 K/MM3 (134-434); RBC 3.25 M/mm3 (3.60-5.2); RDW 16.8 % (11.6-15.6); WHITE BLOOD COUNT 2.8 K/mm3 (4.0-10.0)
--- NOTE | 2019-06-13 13:48 | PN ---
S CIWA - CIWA Score Nausea/Vomitin-No Nausea/No Vomiting Muscle Tremors: 3 Anxiety: 2 Agitation: 3 Paroxysmal Sweats: 2 Orientation: 0-Oriented Tacttile Disturbances: 0-None Auditory Disturbances: 0-None Visual Disturbances: 0-None Headache: 0-None Present CIWA-Ar Total Score: 10 BHS Progress Note (SOAP) Subjective: sweats chills shakes dry/itchy skin Objective: 06/13/19 13:50 Vital Signs Temperature 97.9 F 06/13/19 09:16 Pulse Rate 61 06/13/19 09:16 Respiratory Rate 18 06/13/19 09:16 Blood Pressure 114/68 06/13/19 09:16 O2 Sat by Pulse Oximetry (%) Laboratory Tests 06/13/19 06/13/19 08:00 08:00 WBC 2.8 L RBC 3.25 L Hgb 10.4 L Hct 30.7 L MCV 94.4 MCH 32.0 MCHC 33.9 RDW 16.8 H Plt Count 166 D MPV 9.1 Sodium 139 Potassium 3.3 L Chloride 106 Carbon Dioxide 29 Anion Gap 4 L BUN 2.7 L* Creatinine 0.5 L Est GFR (CKD-EPI)AfAm 142.30 Est GFR (CKD-EPI)NonAf 122.78 Random Glucose 95 Calcium 8.3 L Total Bilirubin 0.4 AST 112 H ALT 60 Alkaline Phosphatase 141 H Total Protein 7.0 Albumin 2.5 L labs noted low potassium low BUN elevated AST aaox3 ambulating no acute distress Assessment: 06/13/19 13:53 withdrawals Plan: continue detox [id number] x 3 days ordered iron supplement tid repeat labs
[2019-06-13] MEDS: POTASSIUM CHLORIDE TABS 20 MEQ TABLET.ER (FP) PO SCH (16:04)
[2019-06-13] MEDS: AMMONIUM LACTATE 12% LOTION 225 GM BOTTLE TP SCH ×2 (16:05→22:23)
[2019-06-13] MEDS: FERROUS SO4 325 MG TABLET (FP) PO SCH (17:57)
[2019-06-13] MEDS: THIAMINE HCL 100 MG TABLET (FP) PO SCH (22:22)
[2019-06-13] MEDS: MELATONIN 5 MG TABLETS PO PRN (22:24)
[2019-06-14] MEDS: chlordiazePOXIDE HCL 10 MG CAPSULE PO SCH ×3 (06:34→21:51)
[2019-06-14] MEDS: FERROUS SO4 325 MG TABLET (FP) PO SCH ×3 (08:08→17:57)
[2019-06-14] MEDS: POTASSIUM CHLORIDE TABS 20 MEQ TABLET.ER (FP) PO SCH (10:29)
[2019-06-14] MEDS: PRENATAL VITAMINS W/ FOLIC ACID TABLET (FP) PO SCH (10:29)
[2019-06-14] MEDS: AMMONIUM LACTATE 12% LOTION 225 GM BOTTLE TP SCH ×2 (10:29→22:11)
--- NOTE | 2019-06-14 15:00 | PN ---
S CIWA - CIWA Score Nausea/Vomitin Muscle Tremors: 2 Anxiety: 1-Mildly Anxious Agitation: 1-Slight > Activity Paroxysmal Sweats: 2 Orientation: 0-Oriented Tacttile Disturbances: 0-None Auditory Disturbances: 0-None Visual Disturbances: 0-None Headache: 2-Mild CIWA-Ar Total Score: 10 S Progress Note (SOAP) Subjective: Diarrhea, sweats, chills and tremors Objective: 06/14/19 15:00 Withdrawal sx Vital Signs - 8 hr 06/14/19 06/14/19 08:52 12:29 Temperature 97.5 F L 97.0 F L Pulse Rate 76 78 Respiratory 18 16 Rate Blood Pressure 125/73 116/78 VSS Laboratory Last Values WBC 2.8 K/mm3 (4.0-10.0) L 06/13/19 08:00 RBC 3.25 M/mm3 (3.60-5.2) L 06/13/19 08:00 Hgb 10.4 GM/dL (10.7-15.3) L 06/13/19 08:00 Hct 30.7 % (32.4-45.2) L 06/13/19 08:00 MCV 94.4 fl (80-96) 06/13/19 08:00 MCH 32.0 pg (25.7-33.7) 06/13/19 08:00 MCHC 33.9 g/dl (32.0-36.0) 06/13/19 08:00 RDW 16.8 % (11.6-15.6) H 06/13/19 08:00 Plt Count 166 K/MM3 (134-434) D 06/13/19 08:00 MPV 9.1 fl (7.5-11.1) 06/13/19 08:00 Sodium 139 mmol/L (136-145) 06/13/19 08:00 Potassium 3.3 mmol/L (3.5-5.1) L 06/13/19 08:00 Chloride 106 mmol/L (98-107) 06/13/19 08:00 Carbon Dioxide 29 mmol/L (21-32) 06/13/19 08:00 Anion Gap 4 MMOL/L (8-16) L 06/13/19 08:00 BUN 2.7 mg/dL (7-18) L* 06/13/19 08:00 Creatinine 0.5 mg/dL (0.55-1.3) L 06/13/19 08:00 Est GFR (CKD-EPI)AfAm 142.30 06/13/19 08:00 Est GFR (CKD-EPI)NonAf 122.78 06/13/19 08:00 Random Glucose 95 mg/dL (74-106) 06/13/19 08:00 Calcium 8.3 mg/dL (8.5-10.1) L 06/13/19 08:00 Total Bilirubin 0.4 mg/dL (0.2-1) 06/13/19 08:00 AST 112 U/L (15-37) H 06/13/19 08:00 ALT 60 U/L (13-61) 06/13/19 08:00 Alkaline Phosphatase 141 U/L (45-117) H 06/13/19 08:00 Total Protein 7.0 g/dl (6.4-8.2) 06/13/19 08:00 Albumin 2.5 g/dl (3.4-5.0) L 06/13/19 08:00 RPR Titer Nonreactive (NONREACTIVE) 06/13/19 08:00 Labs noted, repeat pending Assessment: 06/14/19 15:00 Withdrawal sx Plan: Continue detox
[2019-06-14] MEDS: MELATONIN 5 MG TABLETS PO PRN (22:11)
[2019-06-14] MEDS: THIAMINE HCL 100 MG TABLET (FP) PO SCH (22:11)
[2019-06-15] MEDS ORDERED: chlordiazePOXIDE HCL 10 MG CAPSULE PO ONE (05:00)
[2019-06-15] MEDS: FERROUS SO4 325 MG TABLET (FP) PO SCH (07:03)
[2019-06-15 10:04] VITALS: BP 124/78; PULSE 73; TEMP 97.3
--- NOTE | 2019-06-15 17:30 | DS ---
[facility] Detox Discharge Summary Admission Date: 06/12/19 Discharge Date: 06/15/19 - History Present History: Alcohol Dependence, Cocaine Dependence Additional Comments: Patient completed detox successfully and accepted admission to [facility] inpatient rehab Pertinent Past History: HIV: non on medication (noncompliant): consider sending CD4 count and HIV PCR and hepatitis A, B, C panel if patient admitted to Rehab Nicotine dependence - Physical Exam Results Vital Signs: Vital Signs Temperature 97.3 F L 06/15/19 09:15 Pulse Rate 73 06/15/19 09:15 Respiratory Rate 18 06/15/19 09:15 Blood Pressure 124/78 06/15/19 09:15 O2 Sat by Pulse Oximetry (%) Pertinent Admission Physical Exam Findings: Withdrawal sxs Laboratory Tests 06/12/19 06/13/19 06/13/19 16:44 08:00 08:00 WBC 2.8 L RBC 3.25 L Hgb 10.4 L Hct 30.7 L MCV 94.4 MCH 32.0 MCHC 33.9 RDW 16.8 H Plt Count 166 D MPV 9.1 Sodium 139 Potassium 3.3 L Chloride 106 Carbon Dioxide 29 Anion Gap 4 L BUN 2.7 L* Creatinine 0.5 L Est GFR (CKD-EPI)AfAm 142.30 Est GFR (CKD-EPI)NonAf 122.78 Random Glucose 95 Calcium 8.3 L Total Bilirubin 0.4 AST 112 H ALT 60 Alkaline Phosphatase 141 H Total Protein 7.0 Albumin 2.5 L POC Urine HCG, Qual Negative RPR Titer 06/13/19 08:00 WBC RBC Hgb Hct MCV MCH MCHC RDW Plt Count MPV Sodium Potassium Chloride Carbon Dioxide Anion Gap BUN Creatinine Est GFR (CKD-EPI)AfAm Est GFR (CKD-EPI)NonAf Random Glucose Calcium Total Bilirubin AST ALT Alkaline Phosphatase Total Protein Albumin POC Urine HCG, Qual RPR Titer Nonreactive Labs reviewed: Hypokalemia (replenished), anemia, elevated LFTs noted - Treatment Hospital Course: Detox Protocol Followed, Detoxed Safely, Responded well, Discharged Condition Good - Medication Discharge Medications: Ambulatory Orders NK [No Known Home Medication] 12/15/16 - Diagnosis (1) Anemia Status: Chronic (2) Hypokalemia Status: Acute (3) Elevated LFTs Status: Acute (4) Alcohol dependence with uncomplicated withdrawal Status: Acute (5) Cocaine dependence Status: Acute (6) HIV (human immunodeficiency virus infection) Status: Chronic (7) Nicotine dependence Status: Chronic - AMA Did Patient Leave Against Medical Advice: No ([facility]
== END 2019-06-15 10:15 | disposition home or self-care (01) | DRG 774 ==
LOC: YASAS 14:55 → Y6N 17:54
PROVIDERS: ADMIT Allergy & Immunology; ATTEND Allergy & Immunology
PROC: HZ2ZZZZ Detoxification Services for Substance Abuse Treatment (ICD-10-PCS; principal; 2019-06-12)
DX: F10.230 Alcohol dependence with withdrawal, uncomplicated (principal); F14.20 Cocaine dependence, uncomplicated; F17.210 Nicotine dependence, cigarettes, uncomplicated; F19.282 Other psychoactive substance dependence with psychoactive substance-induced sleep disorder; F19.24 Other psychoactive substance dependence with psychoactive substance-induced mood disorder; Z21 Asymptomatic human immunodeficiency virus [HIV] infection status; D64.9 Anemia, unspecified; E87.6 Hypokalemia; R94.5 Abnormal results of liver function studies; Z86.19 Personal history of other infectious and parasitic diseases; Z91.410 Personal history of adult physical and sexual abuse; Z98.890 Other specified postprocedural states
CPT/HCPCS: 36415; 80053; 81025; 85027; 86593

== ENCOUNTER 2021-09-27 15:44 | Inpatient (IN) | payer BC ==
[2021-09-27 16:44] VITALS: BMI 21.8
[2021-09-27] MEDS ORDERED: LOPERAMIDE HCL 2 MG CAPSULE PO PRN (17:16)
[2021-09-27] MEDS ORDERED: ACETAMINOPHEN 325 MG TABLET (FP) PO PRN ×2 (17:16)
[2021-09-27] MEDS ORDERED: IBUPROFEN 400 MG TABLET (FP) PO PRN (17:16)
[2021-09-27] MEDS ORDERED: DICYCLOMINE HCL 10 MG CAPSULE PO PRN (17:16)
[2021-09-27] MEDS ORDERED: METHOCARBAMOL 500 MG TABLET PO PRN (17:16)
[2021-09-27] MEDS ORDERED: BENZOCAINE/MENTHOL (CHLORASEPTIC ) LOZENGE MM PRN (17:16)
[2021-09-27] MEDS ORDERED: MELATONIN 5 MG TABLETS PO PRN (17:16)
[2021-09-27] MEDS ORDERED: MAGNESIUM HYDROX 2400MG/30ML ORAL SUSPENSION 30 ML CUP PO PRN (17:16)
[2021-09-27] MEDS ORDERED: ONDANSETRON *ODT* 4 MG TABLET SL PRN (17:16)
[2021-09-27] MEDS ORDERED: MAGNESIUM CITRATE 300 ML BOTTLE PO PRN (17:16)
[2021-09-27] MEDS ORDERED: BISMUTH SUBSALICYLATE 524 MG/30 ML PO PRN (17:16)
[2021-09-27] MEDS ORDERED: MAG HYDROX/AL HYDROX/SIMETH 30 ML UNIT-DOSE CUP PO PRN (17:16)
[2021-09-27] MEDS: hydrOXYzine PAMOATE 25 MG CAPSULE (FP) PO PRN ×2 (19:43→22:36)
[2021-09-27] MEDS ORDERED: THIAMINE HCL 100 MG TABLET (FP) PO SCH (22:00)
[2021-09-28 09:26] VITALS: BP 116/82; PULSE 70; TEMP 97.1
[2021-09-28] MEDS ORDERED: PRENATAL VITAMINS W/ FOLIC ACID TABLET (FP) PO SCH (10:00)
[2021-09-28 10:53] LABS: HEMATOCRIT 36.2 % (32.4-45.2); HEMOGLOBIN 12.3 GM/dL (10.7-15.3); MCH 32.7 pg (25.7-33.7); MCHC 33.9 g/dl (32.0-36.0); MEAN CELL VOLUME 96.5 fl (80-96); MEAN PLT VOLUME 8.3 fl (7.5-11.1); PLATELET COUNT 186 10^3/uL (134-434); RBC 3.75 M/mm3 (3.60-5.2); RDW 15.4 % (11.6-15.6); WHITE BLOOD COUNT 3.1 K/mm3 (4.0-10.0)
[2021-09-28 11:02] LABS: CALCIUM 9.1 mg/dL (8.5-10.1)
[2021-09-28 11:03] LABS: ALBUMIN 3.3 g/dl (3.4-5.0)
[2021-09-28 11:06] LABS: CREATININE 0.5 mg/dL (0.55-1.3)
[2021-09-28 11:07] LABS: BILIRUBIN,TOTAL 0.4 mg/dL (0.2-1); TOT PROT 7.6 g/dl (6.4-8.2)
== END 2021-09-28 10:58 | disposition home or self-care (01) | DRG 774 ==
LOC: YASAS 15:44 → Y6N 18:29
PROVIDERS: ADMIT Allergy & Immunology; ATTEND Surgery
PROC: HZ2ZZZZ Detoxification Services for Substance Abuse Treatment (ICD-10-PCS; principal; 2021-09-27)
DX: F10.230 Alcohol dependence with withdrawal, uncomplicated (principal); F14.20 Cocaine dependence, uncomplicated; F17.213 Nicotine dependence, cigarettes, with withdrawal; Z21 Asymptomatic human immunodeficiency virus [HIV] infection status
CPT/HCPCS: 36415; 80053; 85027; 86780; C9803-CS; U0003; U0005